=== PATIENT | male | born 2000 | race Caucasian/White ===

== ENCOUNTER 2019-08-19 14:10 | Inpatient (IN) | payer SELFPAY ==
[~2019-08-19] VITALS: Ht 177.8 cm; Wt 73.7 kg
[2019-08-19] MEDS ORDERED: LORAZEPAM 2 MG/ML 1 ML VIAL ONE (15:27)
[2019-08-19 15:39] LABS: BASOPHILS % (AUTO) 0.7 % (0.0-5.0); EOSINOPHILS % (AUTO) 1.1 % (0.0-8.0); HEMATOCRIT 46.7 % (42-54); LYMPHOCYTES % (AUTO) 17.6 % (21.0-51.0); MEAN CORPUSCULAR HEMOGLOBIN 31.3 pg (27.0-33.0); MEAN CORPUSCULAR HGB CONC 35.6 g/dL (32.0-36.0); MEAN CORPUSCULAR VOLUME 87.8 fL (80-100); MONOCYTES % (AUTO) 12.1 % (3.0-13.0); NEUTROPHILS % (AUTO) 68.5 % (40.0-77.0); NUCLEATED RED BLOOD CELLS 0.1 % (0.0-0.19); PLATELET COUNT (AUTO) 271 K/uL (130-400); RED BLOOD CELL COUNT(AUTO) 5.32 MIL/uL (4.50-6.20); RED CELL DISTRIBUTION WIDTH 12.4 % (11.0-15.5); WHITE BLOOD COUNT (AUTO) 11.4 K/uL (4.8-10.8)
[2019-08-19 15:41] LABS: CARBON DIOXIDE 28 mmol/L (21-32); CHLORIDE 102 mmol/L (101-111); CREATININE 1.1 mg/dL (0.5-1.5); GLOMERULAR FILTR. RATE CALC 91 mL/min (>60); GLUCOSE,RANDOM 89 mg/dL (70-105); POTASSIUM 3.6 mmol/L (3.5-5.1); SODIUM SERUM 144 mmol/L (136-145); UREA NITROGEN, BLOOD 21 mg/dL (7-18)
[2019-08-19 15:46] LABS: ALANINE AMINOTRANSFERASE 24 U/L (12-78); ALBUMIN 5.2 g/dL (3.5-5.0); ALCOHOL, BLOOD < 3 mg/dL (0-10); ASPARTATE AMINOTRANSFERASE 38 U/L (10-37); BILIRUBIN,TOTAL 4.6 mg/dL (0.2-1.0); TOTAL PROTEIN, SERUM 8.6 g/dL (6.0-8.3)
[2019-08-19] MEDS ORDERED: HALOPERIDOL LACTATE 5 MG/ML VIAL ONE (15:46)
[2019-08-19] MEDS ORDERED: DiphenhydrAMINE HCL 50 MG/ML VIAL ONE (15:46)
[2019-08-19 15:50] LABS: APPEARANCE,URINE Clear (CLEAR); BILIRUBIN,URINE Small (NEGATIVE); COLOR,URINE Dark Yellow (YELLOW); GLUCOSE, URINE (UA) Negative (NEGATIVE); KETONES,URINE >=80 mg/dL (NEGATIVE); LEUKOCYTE ESTERASE ,URINE Negative (NEGATIVE); NITRATE,URINE Negative (NEGATIVE); OCCULT BLOOD,URINE Negative (NEGATIVE); PH,URINE 5.5 (5.0-8.0); PROTEIN,URINE POS 2+ mg/dL (NEGATIVE)
[2019-08-19 15:57] LABS: AMPHET/METH SCREEN,URINE NEGATIVE (NEGATIVE); BARBITURATE SCREEN, URINE NEGATIVE (NEGATIVE); BENZODIAZEPINES SCREEN,URINE NEGATIVE (NEGATIVE); CANNABINOID SCREEN,URINE NEGATIVE (NEGATIVE); COCAINE SCREEN,URINE NEGATIVE (NEGATIVE); OPIATE SCREEN,URINE NEGATIVE (NEGATIVE); PHENCYCLIDINE SCREEN,URINE NEGATIVE (NEGATIVE)
[2019-08-19 16:04] LABS: BACTERIA,URINE Few /HPF (None Seen)
[2019-08-19 16:05] LABS: MUCUS,URINE Few LPF (None Seen)
[2019-08-19 16:45] LABS: INR 1.12 (0.85-1.15); PARTIAL THROMBOPLASTIN TIME 28.2 SEC (26.3-35.5); PROTHROMBIN TIME 11.7 SEC (9.6-11.6)
[2019-08-19] MEDS ORDERED: SODIUM CHLORIDE 0.9% 1000ML 1,000 ML IV ONE ×2 (17:39→21:29)
[2019-08-19] MEDS: SODIUM CHLORIDE 0.9% 1000ML 1,000 ML IV SCH (18:40)
[2019-08-19] MEDS ORDERED: ACETAMINOPHEN 325 MG TAB PO PRN ×2 (18:45)
[2019-08-19] MEDS ORDERED: ONDANSETRON HCL 4 MG/2 ML VIAL IV PRN (18:45)
[2019-08-19] MEDS ORDERED: LORAZEPAM 2 MG/ML 1 ML VIAL IVP PRN (18:45)
[2019-08-19] MEDS: FAMOTIDINE 20MG TAB 20 MG TAB PO SCH (21:00)
[2019-08-20 01:45] VITALS: BP 143/89
[2019-08-20] MEDS: SODIUM CHLORIDE 0.9% 1000ML 1,000 ML IV SCH ×2 (03:20→10:40)
[2019-08-20 04:12] VITALS: BP 140/90
[2019-08-20 08:00] VITALS: BP 139/95
--- NOTE | 2019-08-20 08:06 | NUR ---
DR DALE CONSULTED MESSAGE PLACED TO DR SHEN FOR CONSULT PENDING CALL BACK
--- NOTE | 2019-08-20 10:00 | NUR ---
[facility] CONTACTED HPD CONTACTED BY THIS NURSE AND CHARGE NURSE REGARDING PT EMERGENCY CONTACT INFO. PER HPD THEY ONLY HAVE AN ADDRESS AND WILL ATTEMPT TO MAKE WELLNESS CHECK TO CONTACT FAMILY/MOM. PENDING CALL BACK
[2019-08-20] MEDS ORDERED: OLANZAPINE 10MG/ML 1ML VIAL IM PRN (11:00)
[2019-08-20 11:22] LABS: HEMATOCRIT 41.5 % (42-54); MEAN CORPUSCULAR HEMOGLOBIN 30.9 pg (27.0-33.0); MEAN CORPUSCULAR HGB CONC 35.4 g/dL (32.0-36.0); MEAN CORPUSCULAR VOLUME 87.3 fL (80-100); PLATELET COUNT (AUTO) 235 K/uL (130-400); RED BLOOD CELL COUNT(AUTO) 4.75 MIL/uL (4.50-6.20); WHITE BLOOD COUNT (AUTO) 8.4 K/uL (4.8-10.8)
[2019-08-20 11:31] LABS: CREATININE 1.1 mg/dL (0.5-1.5); POTASSIUM 4.5 mmol/L (3.5-5.1)
--- NOTE | 2019-08-20 11:37 | NUR ---
DR DALE IN FACILITY TO SEE PATIENT DR DALE CAME TO CONSULT PT. UPON BEGINNING TO EXAMINE PT DR SHEN REQUESTED SECURITY R/T AGGITATION. PT BEGAN REPEATING DR SHEN QUESTIONS TO WHICH DR Russo ATTRIBUTED TO AGGRESSIVENESS. SECURITY CALLED AND OFFICERS ENTERED X2. PT BEGAN BECOMING FRUSTRATED AND DEFENSIVE IN A NONVIOLENT WAY. NO PHYSICAL AGGRESSION NOTED. TONE OF VOICE AND WORDS EXPRESSED FRUSTRATION. DR SHEN ASKED US TO CONSULT [facility] (PT FIRST NEEDS TO BE MEDICALLY CLEAR). PT GIVEN SHOT OF ZYPREXA PER MD ORDER. PT TOLERATED WELL AND CONSENTED. NO AGGRESSION NOTED. DR SHEN SIGNED APPLICATION FOR EMERGENCY APPREHENSION AND [facility] AT THIS TIME.
[2019-08-20 12:00] VITALS: BP 146/103
[2019-08-20 12:49] LABS: EOSINOPHILS % (MANUAL) 1 % (1-6); LYMPHOCYTES % (MANUAL) 20 % (22-44); MONOCYTES % (MANUAL) 12 % (2-9); SEGMENTED NEUTROPHILS % 67 % (40-70)
[2019-08-20 12:50] LABS: MAN.DIFF COMMENT-IMPRESSION MANUAL DIFFERENTIAL
[2019-08-20 12:51] LABS: PLATELET MORPHOLOGY COMMENT ADEQUATE
--- NOTE | 2019-08-20 15:56 | NUR ---
CM NOTE cm attempted to speak to pt regarding d/c planning. Pt with AMS and unable to answer questions. Per medical record, pt was brought to hospital by PD. Pt unable to provide any emergency contact. Pt is pending [facility] eval once medically cleared. Plan for now is inpatient psych. CM to f/u.
[2019-08-20 16:00] VITALS: BP 152/87
[2019-08-20] MEDS: FAMOTIDINE 20MG TAB 20 MG TAB PO SCH ×2 (16:10→19:21)
[2019-08-20] MEDS: ENOXAPARIN SODIUM 30 MG/0.3 ML SQ SCH (16:11)
[2019-08-20] MEDS ORDERED: ZIPRASIDONE MESYLATE 20 MG/VIAL IM SCH ×2 (21:15→21:45)
[2019-08-20] MEDS ORDERED: ZIPRASIDONE MESYLATE 20 MG/VIAL IM ONE (21:34)
[2019-08-21] MEDS ORDERED: SODIUM CHLORIDE 0.9% 1000ML 1,000 ML IV SCH ×3 (05:45→21:00)
--- NOTE | 2019-08-21 06:08 | NUR ---
IV ATTEMPTED TO START IV ON PATIENT, HOWEVER, HE REFUSED HE STATED ' TO GET THE HELL OUT OF HIS ROOM, AND THAT HE DIDNT NEED ANYTHING FROM US." INFORMED HIM ABOUT THE IMPORTANCE OF HAVING HIS IV FLUIDS, HOWEVER, HE SAID HE DIDNT WANT THE IV.
[2019-08-21 08:00] VITALS: BP 151/110
[2019-08-21 08:48] LABS: HEMATOCRIT 40.8 % (42-54); MEAN CORPUSCULAR HGB CONC 35.2 g/dL (32.0-36.0); MEAN CORPUSCULAR VOLUME 87.9 fL (80-100); NUCLEATED RED BLOOD CELLS 0.1 % (0.0-0.19); PLATELET COUNT (AUTO) 224 K/uL (130-400); RED BLOOD CELL COUNT(AUTO) 4.64 MIL/uL (4.50-6.20); RED CELL DISTRIBUTION WIDTH 12.2 % (11.0-15.5)
[2019-08-21 09:37] LABS: BASOPHILS % (MANUAL) 2 % (0-2); EOSINOPHILS % (MANUAL) 3 % (1-6); LYMPHOCYTES % (MANUAL) 16 % (22-44); MONOCYTES % (MANUAL) 13 % (2-9); SEGMENTED NEUTROPHILS % 66 % (40-70)
[2019-08-21] MEDS: FAMOTIDINE 20MG TAB 20 MG TAB PO SCH ×2 (09:37→20:04)
[2019-08-21 09:38] LABS: MAN.DIFF COMMENT-IMPRESSION MANUAL DIFFERENTIAL; PLATELET MORPHOLOGY COMMENT ADEQUATE
[2019-08-21] MEDS: LORAZEPAM 2 MG/ML 1 ML VIAL IM PRN (09:38)
[2019-08-21] MEDS: ENOXAPARIN SODIUM 30 MG/0.3 ML SQ SCH (09:39)
--- NOTE | 2019-08-21 09:45 | NUR ---
TELEPHONE NUMBER FOR PT'S MOM BONNIE HARTLEY [facility] [facility]. [phone] AND [phone]. CALLED FIRST NUMBER AND PERSON NAMED "DIPTI" ANSWERED, STATED BONNIE WAS NOT IN. NO INFORMATION SHARED WITH DIPTI AT PRESENT. MESSAGE LEFT REQUESTING CALLBACK.
[2019-08-21 09:46] LABS: CREATININE 1.1 mg/dL (0.5-1.5); POTASSIUM 3.6 mmol/L (3.5-5.1)
[2019-08-21 12:00] VITALS: BP 173/96
[2019-08-21] MEDS ORDERED: ZIPRASIDONE MESYLATE 20 MG/VIAL IM SCH (15:15)
--- NOTE | 2019-08-21 18:07 | NUR ---
D/C PLAN CM spoke to pts mother Windy Staples regarding d/c planning. States pt lives with her. Reports this behavior is not normal for pt but does have a dx of bipolar disorder. CM asked if pt is taking medications for condition. States pt refuses to take any medicines. CM explained that pt is pending medical clearance for [facility] referral. Notified that they will be screening and making recommendations for possible inpatient behavioral treatment. CM explained that pt may be declined inpatient services. Verbalized understanding. CM asked if mother willing to take pt home at d/c if denied inpatient. States "yes". Plan for now is inpatient behavioral placement vs home with mother and outpatient treatment with [facility]. CM to f/u once medically cleared. Addendum: 08/21/19 at 1812 by NOE HOLLAND Amended: Links added.
[2019-08-21 18:13] VITALS: BP 161/99
[2019-08-21 19:00] VITALS: BP 130/83
--- NOTE | 2019-08-21 20:05 | NUR ---
BEHAVIOR Pt found walking around the nurses station,talking randomly.Redirected to his room,explained purpose of starting a new iv since he had pulled it out earlier for the day nurse.He cooperated and was able to insert a new iv to his rt forearm this time.Booker at bedside as 1:1 sitter.
--- NOTE | 2019-08-21 20:05 | NUR ---
ALISA DEAN Pt removed his ID yvette,applied a new one. Addendum: 08/21/19 at 6246 by DIPTI BERNABE RN RN Amended: Links added.
[2019-08-21 23:00] VITALS: BP 145/80
--- NOTE | 2019-08-21 23:35 | NUR ---
AGITATED Pt sitting on the floor,talking inappropriately.Redirected per staff.Cont on ivf,iv site with no redness.
--- NOTE | 2019-08-22 01:33 | NUR ---
BEHAVIOR Pt walking around the hallway,got upset when advised to stay in his room.He states"I'm the one paying you!".He also said,"Are you harrassing me?" Booker Cardoza walking around with him.
--- NOTE | 2019-08-22 03:00 | NUR ---
CALM Pt calm,ambulating again around the nurses station with another staff.
[2019-08-22 04:00] VITALS: BP 152/83
[2019-08-22 04:46] LABS: HEMATOCRIT 38.4 % (42-54); MEAN CORPUSCULAR HEMOGLOBIN 31.4 pg (27.0-33.0); MEAN CORPUSCULAR HGB CONC 36.1 g/dL (32.0-36.0); MEAN CORPUSCULAR VOLUME 86.8 fL (80-100); PLATELET COUNT (AUTO) 221 K/uL (130-400); RED BLOOD CELL COUNT(AUTO) 4.43 MIL/uL (4.50-6.20); RED CELL DISTRIBUTION WIDTH 12.2 % (11.0-15.5)
[2019-08-22 05:10] LABS: POTASSIUM 3.8 mmol/L (3.5-5.1)
[2019-08-22 08:00] VITALS: BP 164/105
[2019-08-22] MEDS: LORAZEPAM 2 MG/ML 1 ML VIAL IM PRN (08:46)
[2019-08-22] MEDS: FAMOTIDINE 20MG TAB 20 MG TAB PO SCH ×2 (08:48→20:44)
[2019-08-22] MEDS: ENOXAPARIN SODIUM 30 MG/0.3 ML SQ SCH (09:00)
--- NOTE | 2019-08-22 10:51 | NUR ---
BEHAVIOR Patient has been pacing up and down soon after change of shift. He reluctantly agreed to have ativan IM administered and it was charge nurse who administered because when primary nurse arrived to room he asked her to leave, for no real, apparent reason. At change of shift primary nurse was introduced to him and he shown no problems towards having this nurse. Patient had ativan adminsitered IM and did not really helped him relax. [facility] was called for evaluation and motor equipment commanding officer just arived. Dr. Cochran was called. He stated not to administer ativan to allow CK to come down. Also, zypreza will be given SL. Patient is basically restless, tense, pacing nonstop around nurses station at a moderate, not slow, pace. Copy of current labs, admission labs, UDS, and Facesheet given to motor equipment commanding officer.
[2019-08-22] MEDS: OLANZAPINE ODT 5 MG TAB SL SCH ×3 (11:52→20:44)
[2019-08-22 11:56] VITALS: BP 174/115
--- NOTE | 2019-08-22 12:06 | NUR ---
BEHAVIOR Patient pulled out his intravneous catheter. States he wants to leave. Dr. Cochran was called and informed; stated patient could get ativan IV; informed him that no intravenous ativan can be given due to no IV catheter. Stated if patient wants to leave why can't he go? Paged attending hospitalist Dr. Paul; pending for him to call back.
--- NOTE | 2019-08-22 16:43 | NUR ---
FOLLOW-UP Patient has been more relaxed after he sat inchair and fell asleep for approximately an 1.5 hr. He is less restless, less anxious and walking a lot less. He is sectioned to go to psychiatric facility once acepted, so he could not be able to go even as an AMA patient. He attempted to leave once approximately 2 ours ago but security was called and they were able to convince him to go back to his room without any distress or any problems.
[2019-08-22 20:00] VITALS: BP 161/95
--- NOTE | 2019-08-22 20:02 | NUR ---
NO IV ACCESS Received pt with no Iv site,no ID band.He states he took them off bec he's leaving.Explained need to place an ID band on him,he got upset. Addendum: 08/22/19 at 2315 by DIPTI BERNABE RN RN Amended: Links added.
[2019-08-22] MEDS: DIPHENHYDRAMINE HCL 25 MG CAPSULE PO SCH (20:44)
--- NOTE | 2019-08-22 20:44 | NUR ---
BEHAVIOR Received pt pacing and walking around the nurses station.He's upset,states,'I want to leave!"As per report pt can't leave AMA since he has a mental health warrant for emergency retirement.Pt verbally abusive.Called security to talk to him.He took his night meds.Sitter following around.
--- NOTE | 2019-08-22 22:08 | NUR ---
SLEEP Pt asleep in bed.No distress noted.
--- NOTE | 2019-08-22 23:18 | NUR ---
AWAKE Pt awake again walking around the hallway,calm.
[2019-08-23] VITALS: BP 112/62
[2019-08-23 04:00] VITALS: BP 146/95
--- NOTE | 2019-08-23 04:33 | NUR ---
SLEPT Pt slept thru most of the night,when aroused for Vs monitorin,heart rate per REPAIR MILLER 120-130's.Pt awake and anxious,talking random stuff.Apical heart rate 106,regular and strong.Pt denies chest pain or sob.
--- NOTE | 2019-08-23 04:50 | NUR ---
PO Encouraged pt to drink water.
--- NOTE | 2019-08-23 06:28 | NUR ---
UP AD ELLY Pt up ad elly ,calm,in a good mood this time.
[2019-08-23 08:00] VITALS: BP 152/102
[2019-08-23] MEDS ORDERED: SODIUM BICARB 8.4% 50ML SYRING 150 MEQ in DEXTROSE 5%-WATER 1,000 ML IV SCH (08:30)
[2019-08-23] MEDS: DIPHENHYDRAMINE HCL 25 MG CAPSULE PO SCH ×3 (08:41→20:49)
[2019-08-23] MEDS: OLANZAPINE ODT 5 MG TAB SL SCH ×3 (08:41→20:48)
[2019-08-23] MEDS: ENOXAPARIN SODIUM 30 MG/0.3 ML SQ SCH (08:42)
[2019-08-23] MEDS: FAMOTIDINE 20MG TAB 20 MG TAB PO SCH ×2 (08:42→20:48)
--- NOTE | 2019-08-23 08:43 | NUR ---
NURSING NOTE Patient has been walking at moderate (not slow) speed around the nurses station accompanied by assistant in nursing at all times. Patient meet to a corner of nursing floor and then started yelling obscenities and becoming agitated. Security was called for beligerant patient. Dr. Paul has been updated on patient's condition. Plan is for an intraveous line to be started to implement the iv fluids ordered by attending. Patient continues being beligerant now in his room. Has refused to take his sublingual zyprexa so far.
[2019-08-23 10:02] LABS: CREATININE 1.2 mg/dL (0.5-1.5)
[2019-08-23 10:06] LABS: EOSINOPHILS % (AUTO) 1.4 % (0.0-8.0); HEMATOCRIT 44.4 % (42-54); LYMPHOCYTES % (AUTO) 26.1 % (21.0-51.0); MEAN CORPUSCULAR HEMOGLOBIN 30.9 pg (27.0-33.0); MEAN CORPUSCULAR HGB CONC 35.5 g/dL (32.0-36.0); MONOCYTES % (AUTO) 11.8 % (3.0-13.0); NEUTROPHILS % (AUTO) 59.7 % (40.0-77.0); PLATELET COUNT (AUTO) 242 K/uL (130-400); RED CELL DISTRIBUTION WIDTH 12.1 % (11.0-15.5); WHITE BLOOD COUNT (AUTO) 5.9 K/uL (4.8-10.8)
--- NOTE | 2019-08-23 10:14 | NUR ---
POLICE CALLED Primary nurse has made several attempts to give sublingual zyperxa and benadryl to patient. Patient not cooperating. He did consent to have labs drawn to recheck CK levels. After that he refused one more attempt to have his morning medications administerd. Primary nurse called psychatrist Dr. Cochran. He was updated. Stated to give ativan 1mg IV X 1 and see how patient reacts and see what happens. ALso, Dr. Cochran stated to have [facility] refer to [facility]. Contacted [facility] Helpline ta [phone]. Spoke to person answering line (melodie). Stated he will notify person on-call to call nurse back. Pending for [facility] configuration management advisor to call RN back. Afte that, patient was in cassie ambulating when he became beligerant again, agitated, loud, irritable, short-tempered and went towards the elevators. He threw a pen to the vest of his nursing attendant Brian. Patient also spitted on nursing attendant. Security was called. Patient was yelling, screaming, and making a lot of noise and being unreasonable. Called [place] [employer] after Security arrived and patient was not attending to cyber security specialist. Spoke to Maritza and gave all information requested and police will be sent.
--- NOTE | 2019-08-23 11:00 | NUR ---
As per Sandra Crate Repairer, [facility] said that they will not come to re-screen or to refer the pt to [place] until the patient's CK level is normal and at this time pt's level is 284. Dipti Knowles primary care nurse is aware.
--- NOTE | 2019-08-23 11:09 | NUR ---
[facility] Mitchell informed by nurse Maggie that [facility] hotline was called cause Dr Morley wants referral to [facility]. Waiting for them to come. Per nurse pt CK levels are not normal yet, but should be by this afternoon. Informed nurse that [facility] will not come screen until levels are normal and pt is medically cleared for transfer. MITCHELL spoke to Stella Warner screener. Per Stella, they will not come until CK levels are at normal level. Informed Stella of behavioral issues and Dr Morley recommendation. Screener states that Dr Morley can not make recommendations for placement. [facility] is last resort if they can not find placement elsewhere. MITCHELL informed Dhara, charge nurse of this. [facility] not to be call until ck levels are at normal level. Dhara informed Maggie and security of this.
[2019-08-23 11:48] VITALS: BP 135/107
--- NOTE | 2019-08-23 13:11 | NUR ---
MORNING MEDICATIONS Patient had been resufing all nursing care, all medictaions and also intravenous lines restarted. He has been walking up and down accompanied by vocational nursing instructor. He has been asked periodically by nurse and vocational nursing instructor if he would agree to take his medications. He has finally agreed and tok his AM medications at this time. Continues refusing sticks. THe only other care he has allowed was to have a venipuncture for laboratory levels. His CK levels have dropped to 284. [facility] called back and spoke to Solar Photovoltaic Installer. Stated to not call them anymore until CK levels are 232 or below; otherwise, no re-evaluation will be conducted. Patient remains unharmed but restless. Has not sleep at all during this shift, since 0700. His level of agitation has decreased compared to how he was a couple of hours ago.
--- NOTE | 2019-08-23 13:45 | NUR ---
AGITATION Patient stated he was going to leave and went towards the stairs. payroll assistant went behind him and brought him back to room. Patient has been stating offensive words, short-tempered, making statements about his wealth, about his relationships, we don't now who he is. Earlier in the day in the room he was pronouncing words that sounded like the [place]ian language. He was doing that earlier again while he was walking in the vasquez. Occasionally he starts talking in sentences that sound like in an unintelligible language. He has used four-letter words once he gets agitated. Field Control Inspector Tino and manager security were called after patient when patient attempted to get to the stairs. Patient does not understand any reason. His behavior is angry, aggressive, confrontational, exasperated, for no apparent reason that can be reasonably discussed with him.
--- NOTE | 2019-08-23 13:54 | NUR ---
DR. BARBOZA Attending went to patient's room to explain that patient needs to be treated for protein levels to come down. he needs an intravenous line and fluids as ordered, which patient keeps refusing. Patient got very loud and confrontational. Patient was not agreeable to any action on the part of the staff. Dr. Barboza did his [id number] evaluation of patient. Orders are to treat with the intravenous fluids as ordered.
--- NOTE | 2019-08-23 14:55 | NUR ---
DR. COCHRAN Psychiatrist did his rounds. Updated on patient's condition. Dr. Cochran also asked patient if he would agree to a hep lock being inserted so he could received his medications. Patient refused, standing firmly in front of psychiatrist. No further orders.
[2019-08-23] MEDS ORDERED: LORAZEPAM 2 MG/ML 1 ML VIAL ONE (15:46)
--- NOTE | 2019-08-23 15:50 | NUR ---
BEHAVIORAL Restlessness increased. Patient became agitated, aggressive, refusing to have medications administered, combative. A code manpower was called and patient was restrained in order to be able to administer his medications as patient kept stating he does not need any medications. Four-point restraints placed. Started hep lock to left forearm # 20g. Started the sodium bicarbonate at 200mL/hr as ordered by Dr. Paul. Administered lorazepam 1mg IV. Patient cursing loudly. Biting the restraints from time to time.
--- NOTE | 2019-08-23 16:10 | NUR ---
DR. BARBOZA Notified of patient combative and in 4-point restraint now. Informed sodium bicarbonate was started and ativan 1mg IV given. Ordered to keep the sodium bicarbonate running continuously and to obtain CK levels in AM.
[2019-08-23] MEDS ORDERED: PHARMACY COMMUNICATION MISC SCH (16:15)
--- NOTE | 2019-08-23 16:17 | NUR ---
FOLLOW UP Patient has fallen asleep.
[2019-08-23] MEDS ORDERED: LORAZEPAM 2 MG/ML 1 ML VIAL IVP ONE (16:59)
--- NOTE | 2019-08-23 18:01 | NUR ---
DR. BARBOZA/BRADFORD Updated Dr. Barboza on mother's visit and that she stated patient has been diagnosed with bipolar disorder. Dr. Barboza visited patiet at the bedside and stated to notify Dr. Cochran of mother's report. Dr. Cochran was notified and he stated zyprexa is the medication he needs for the bipolar and that he is already on it. No further orders.
--- NOTE | 2019-08-23 19:00 | NUR ---
RESTRAINTS Received pt on 4 point restraints,pt is confused.Talking inappropriately,He's agitated and restless,Checked both arms and legs for circulation,ROM,comfort,released and repositioned,checked skin condition.Refer to MS restraint flowsheet.
[2019-08-23] MEDS: SODIUM BICARB 8.4% 50ML SYRING 150 MEQ in DEXTROSE 5%-WATER 1,000 ML IV SCH (20:49)
[2019-08-23 21:00] VITALS: BP 181/96
--- NOTE | 2019-08-23 21:00 | NUR ---
MEDS Pt took due meds.Tila well.Cont on Ivf,iv site with no redness,no swelling.
--- NOTE | 2019-08-23 22:03 | NUR ---
MOVED Pt moved to 310,closer to the nurses station.Bed alarm placed on bed.Pt appears asleep,eyes closed.Resp even and unlabored.
[2019-08-23 23:21] VITALS: BP 178/89
--- NOTE | 2019-08-24 00:46 | NUR ---
MUMBLING Pt remains drowsy,mumbling random words.Pt singing randomly.Elimination needs offerred per staff.Circulation checks done as per protocol.
--- NOTE | 2019-08-24 01:12 | NUR ---
AGITATION Pt awake,agitated.Voided per urinal.Pt attempting to get out of bed.Attempting to bite off his restraints.Lang Spivey Rivet Catcher
--- NOTE | 2019-08-24 01:21 | NUR ---
MAINTENANCE ASSISTANT Allyssa kraft Pharmaceutical Officer inside the room assessing and talking to pt.She ordered for a sitter.Cast Iron Dipper aware.
--- NOTE | 2019-08-24 02:14 | NUR ---
TYTER Pt remains anxious,agitated.Instrument Checker is aware she did not want to medicate patient this time.Rachel unit secretary watching him right now.
[2019-08-24] MEDS: SODIUM BICARB 8.4% 50ML SYRING 150 MEQ in DEXTROSE 5%-WATER 1,000 ML IV SCH ×2 (02:26→08:14)
--- NOTE | 2019-08-24 02:28 | NUR ---
VERBALLY ABUSIVE Addendum: 08/24/19 at 0233 by DIPTI BERNABE RN RN Pt verbally abusing staff,he wants to get off the restraints.Explained purpose of it,he cont to be verbally aggressive,talking profanity against staff and states,"CUT THIS OFF YOU'RE SEXUALLY HARRASING ME'! 1:1 lyn Win at the door.Notified Middle School Librarian Caitlin Mckenzie re pt.s.status and accussing staff of above.
[2019-08-24 04:15] VITALS: BP 156/110
--- NOTE | 2019-08-24 07:01 | NUR ---
STATUS Pt has on and off lucid moments,agiitated and has delusions most of the time.1:1 sitter at bedside.Skin remains intact,good cms.Restraints released and reapplied q 1 hr.
[2019-08-24] MEDS: DIPHENHYDRAMINE HCL 25 MG CAPSULE PO SCH ×3 (07:52→20:42)
[2019-08-24] MEDS: OLANZAPINE ODT 5 MG TAB SL SCH ×3 (07:52→20:41)
[2019-08-24 08:00] VITALS: BP 168/97
[2019-08-24] MEDS: FAMOTIDINE 20MG TAB 20 MG TAB PO SCH ×2 (08:20→20:42)
[2019-08-24] MEDS: ENOXAPARIN SODIUM 30 MG/0.3 ML SQ SCH (08:22)
--- NOTE | 2019-08-24 09:45 | NUR ---
CK 223, DR BARBOZA STATES PT MEDICALLY CLEAR FOR [facility] SCREENING. CALL PLACED TO HOTLINE, REQUEST FOR RE-SCREENING DUE TO AGITATION, AGGRESSION, AND DELIRIUM.
[2019-08-24 10:00] VITALS: BP 168/96
[2019-08-24] MEDS: RISPERIDONE 1 MG TABLET PO SCH ×2 (10:18→20:42)
[2019-08-24 12:00] VITALS: BP 131/96
--- NOTE | 2019-08-24 15:46 | NUR ---
CM Note: [facility] screen As per primary nurse [facility] came to screen pt, met inpatient at this time, planning transfer for [facility] but no bed at this time, currently looking for other facilities. Pt pending psych bed. Primary nurse aware. CM to cont to follow up.
[2019-08-24 16:00] VITALS: BP 147/98
[2019-08-24] MEDS: METOPROLOL TARTRATE 25 MG TAB PO SCH ×2 (17:15→20:42)
[2019-08-24 19:45] VITALS: BP 163/93
[2019-08-25] VITALS (7 sets, daily range): BP systolic 127–187; BP diastolic 66–89
[2019-08-25] MEDS: FAMOTIDINE 20MG TAB 20 MG TAB PO SCH ×2 (08:40→20:04)
[2019-08-25] MEDS: METOPROLOL TARTRATE 25 MG TAB PO SCH ×2 (08:40→20:05)
[2019-08-25] MEDS: RISPERIDONE 1 MG TABLET PO SCH ×2 (08:40→20:05)
[2019-08-25] MEDS: OLANZAPINE ODT 5 MG TAB SL SCH ×3 (08:41→20:05)
[2019-08-25] MEDS: DIPHENHYDRAMINE HCL 25 MG CAPSULE PO SCH ×3 (08:41→20:05)
--- NOTE | 2019-08-25 16:34 | NUR ---
RD Screen - LOS x 6 Pt admitted for psychotic episode. Pt with Antisocial Personality Disorder as per EMR. Pt previously with aggressive behavior, currently improved as per EMR. Pt tolerating Regular diet order with no report of GI distress, PO intake at 75-100%. Pt LBM 08/24/19. Healthy BMI of 23.3. Noted Alb 5.2 (08/19/19). RD to continue to monitor. Pt medically cleared for discharge, as per EMR. Please notify for additional nutrition concerns. Thank you. Addendum: 08/25/19 at [address] NU[address]EZ [address] RD Amended: Links added.
[2019-08-26 08:00] VITALS: BP 141/76
[2019-08-26] MEDS: OLANZAPINE ODT 5 MG TAB SL SCH (08:27)
[2019-08-26] MEDS: RISPERIDONE 1 MG TABLET PO SCH (08:27)
[2019-08-26] MEDS: FAMOTIDINE 20MG TAB 20 MG TAB PO SCH (08:27)
[2019-08-26] MEDS: METOPROLOL TARTRATE 25 MG TAB PO SCH (08:28)
[2019-08-26] MEDS: DIPHENHYDRAMINE HCL 25 MG CAPSULE PO SCH (08:28)
[2019-08-26 11:46] VITALS: BP 152/73
--- NOTE | 2019-08-26 12:00 | NUR ---
BEAU Note: Timmy has acceptance w/[facility] Spoke to Stella shea/Timmy gave direct # in case needed . Pt has acceptance for [facility] getting all papers ready, officer will come potato picker pt today. Primary nurse aware, house super aware. Dispo done. CM to cont to follow up.
--- NOTE | 2019-08-26 13:10 | NUR ---
Pt D/C Update Pt admitted for psychotic episode. Pt with Antisocial Personality Disorder as per dx. Pt previously with aggressive behavior, currently improved. Pt tolerating Regular diet order with no report of GI distress, TCK at normal levels, Pt accepted to [facility] in [place], Report called to WILY Jiménez on [address], All questions and concerns addressed, Pt picked up by police sergeant Torey Vidales, from [facility], Pt was co-operative, transported in wheel chair by FULL STACK PYTHON DEVELOPER accompanied with Mud Mixer Helper. Mother called and updated with information of transitional care, Mother given #[phone] and made know son is in unit [address]. Pt d/c with all psych medication currently on this admission. PIV removed without complication.
== END 2019-08-26 13:15 | DRG 558 ==
LOC: EDH 14:10 → OBSVTOIN 14:11 → EDHIP 14:11 → 3BH 08-20 01:30
PROVIDERS: ADMIT Family Medicine; ATTEND Family Medicine
DX: M62.82 Rhabdomyolysis (principal); F23 Brief psychotic disorder; F60.2 Antisocial personality disorder
CPT/HCPCS: 36415; 70450; 73130; 80048; 80053; 80305; 81001; 82140; 82550; 85025; 85027; 85610; 85730; 93005; G0378; G0480; J1200; J1630; J1650; J2060; J3486; J3490; J7030; J7070; Q0163

== ENCOUNTER 2019-09-16 12:43 | Emergency (ER) | payer OTHER ==
[2019-09-16 14:15] LABS: BASOPHILS % (AUTO) 0.9 % (0.0-5.0); EOSINOPHILS % (AUTO) 0.5 % (0.0-8.0); HEMATOCRIT 46.6 % (42-54); LYMPHOCYTES % (AUTO) 19.4 % (21.0-51.0); MEAN CORPUSCULAR HGB CONC 35.3 g/dL (32.0-36.0); MEAN CORPUSCULAR VOLUME 87.9 fL (80-100); MONOCYTES % (AUTO) 9.6 % (3.0-13.0); NEUTROPHILS % (AUTO) 69.6 % (40.0-77.0); PLATELET COUNT (AUTO) 236 K/uL (130-400); RED CELL DISTRIBUTION WIDTH 12.3 % (11.0-15.5); WHITE BLOOD COUNT (AUTO) 8.5 K/uL (4.8-10.8)
[2019-09-16 14:22] LABS: CARBON DIOXIDE 32 mmol/L (21-32); CHLORIDE 103 mmol/L (101-111); CREATININE 1.1 mg/dL (0.5-1.5); GLOMERULAR FILTR. RATE CALC 90 mL/min (>60); GLUCOSE,RANDOM 92 mg/dL (70-105); POTASSIUM 3.7 mmol/L (3.5-5.1); SODIUM SERUM 143 mmol/L (136-145); UREA NITROGEN, BLOOD 11 mg/dL (7-18)
[2019-09-16 14:23] LABS: AMPHET/METH SCREEN,URINE NEGATIVE (NEGATIVE); BARBITURATE SCREEN, URINE NEGATIVE (NEGATIVE); BENZODIAZEPINES SCREEN,URINE NEGATIVE (NEGATIVE); CANNABINOID SCREEN,URINE NEGATIVE (NEGATIVE); COCAINE SCREEN,URINE NEGATIVE (NEGATIVE); OPIATE SCREEN,URINE NEGATIVE (NEGATIVE); PHENCYCLIDINE SCREEN,URINE NEGATIVE (NEGATIVE)
[2019-09-16 14:24] LABS: APPEARANCE,URINE Clear (CLEAR); BILIRUBIN,URINE Negative (NEGATIVE); COLOR,URINE Yellow (YELLOW); GLUCOSE, URINE (UA) Negative (NEGATIVE); KETONES,URINE 15 mg/dL (NEGATIVE); LEUKOCYTE ESTERASE ,URINE Negative (NEGATIVE); NITRATE,URINE Negative (NEGATIVE); OCCULT BLOOD,URINE Negative (NEGATIVE); PROTEIN,URINE Negative (NEGATIVE); UROBILINOGEN,URINE 0.2 mg/dL (0.2-1.0)
[2019-09-16 14:36] LABS: ALANINE AMINOTRANSFERASE 24 U/L (12-78); ALBUMIN 4.9 g/dL (3.5-5.0); ALCOHOL, BLOOD < 3 mg/dL (0-10); ASPARTATE AMINOTRANSFERASE 29 U/L (10-37); BILIRUBIN,TOTAL 1.6 mg/dL (0.2-1.0); TOTAL PROTEIN, SERUM 8.8 g/dL (6.0-8.3)
[2019-09-16 14:44] LABS: ACETAMINOPHEN < 1 mcg/mL (10-29); SALICYLATE < 2.8 mg/dL (2.8-20.0)
[2019-09-16 14:46] LABS: CREATINE KINASE, TOTAL 425 U/L (21-232)
[2019-09-16 15:03] LABS: BACTERIA,URINE Rare /HPF (None Seen); RBC,URINE 0-1 /HPF (0-1)
[2019-09-16 15:04] LABS: MUCUS,URINE Few LPF (None Seen); SQUAMOUS EPITHELIAL CELL,UR 0-2 /HPF (0-2)
== END 2019-09-16 21:03 ==
LOC: EDH 12:43
DX: F22 Delusional disorders (principal); F31.9 Bipolar disorder, unspecified; F20.9 Schizophrenia, unspecified; Z72.0 Tobacco use
CPT/HCPCS: 36415; 80053; 80164; 80305; 81001; 82550; 85025; 93005; 99285; G0480 ×2; G0481